=== PATIENT | male | born 2000 | race Caucasian/White ===

== ENCOUNTER 2018-12-24 01:05 | Emergency (ER) | payer MEDICAID ==
[2018-12-24 01:44] VITALS: BMI 22.1
[2018-12-24 01:52] VITALS: BP 134/70; PULSE 68; RESP 18; TEMP 98.2; O2SAT 100
--- NOTE | 2018-12-24 02:19 | ED PDOC ---
Arrival/HPI - General Chief Complaint: Dental Pain Time Seen by Provider: 12/24/18 01:42 Historian: Patient - History of Present Illness Narrative History of Present Illness (Text): 12/24/18 02:16 18 year old male, with no significant past medical history, presents to the emergency department with left dental swelling, today. Patient informs he was having dental pain for one month. Patient informs today he found that the area had swollen and gotten worse. Patient denies any other symptoms. Patient denies any fevers, chills, headache, dizziness, chest pain, shortness of breath, dyspnea on exertion, cough, abdominal pain, nausea, vomiting, diarrhea, back pain, neck pain, or any other complaint. Time/Duration: 24 hours, > month Symptom Onset: Gradual Symptom Course: Unchanged Quality: Aching Activities at Onset: Light Context: Home Past Medical History - Provider Review Nursing Documentation Reviewed: Yes - Psychiatric Hx Substance Use: No Family/Social History - Physician Review Nursing Documentation Reviewed: Yes Family/Social History: No Known Family HX Smoking Status: Light Smoker < 10 Cigarettes Daily Hx Alcohol Use: No Hx Substance Use: No Allergies/Home Meds Allergies/Adverse Reactions: Allergies No Known Allergies Allergy (Verified 12/24/18 01:44) Review of Systems - Physician Review All systems were reviewed & negative as marked: Yes - Review of Systems Constitutional: absent: Fevers, Night Sweats ENT: Other (dental pain) Respiratory: absent: SOB, Cough Cardiovascular: absent: Chest Pain, GRIJALVA Gastrointestinal: absent: Abdominal Pain, Diarrhea, Nausea, Vomiting Musculoskeletal: absent: Back Pain, Neck Pain Neurological: absent: Headache, Dizziness Physical Exam Vital Signs Reviewed: Yes Vital Signs Temp Pulse Resp BP Pulse Ox 12/24/18 01:52 98.2 F 68 18 134/70 100 Temperature: Afebrile Blood Pressure: Normal Pulse: Regular Respiratory Rate: Normal Appearance: Positive for: Well-Appearing, Non-Toxic, Comfortable Pain Distress: None Mental Status: Positive for: Alert and Oriented X 3 - Systems Exam Head: Present: Atraumatic, Normocephalic Pupils: Present: PERRL Extroacular Muscles: Present: EOMI Conjunctiva: Present: Normal Mouth: Present: Other (swelling to left buccal area) Neck: Present: Normal Range of Motion Respiratory/Chest: Present: Clear to Auscultation, Good Air Exchange. No: Respiratory Distress, Accessory Muscle Use Cardiovascular: Present: Regular Rate and Rhythm, Normal S1, S2. No: Murmurs Abdomen: No: Tenderness, Distention, Peritoneal Signs Back: Present: Normal Inspection Upper Extremity: Present: Normal Inspection. No: Cyanosis, Edema Lower Extremity: Present: Normal Inspection. No: Edema Neurological: Present: GCS=15, CN II-XII Intact, Speech Normal Skin: Present: Warm, Dry, Normal Color. No: Rashes Psychiatric: Present: Alert, Oriented x 3, Normal Insight, Normal Concentration Medical Decision Making ED Course and Treatment: 12/24/18 02:20 Impression: 18 year old male presents with left sided dental pain. Plan: -- Clindamycin -- Reassess and disposition Prior Visits: Notes and results from previous visits were reviewed. Progress Notes: 12/24/18 04:29 concern for large abscess on exam. adivsed will liketo transfer to [facility] . at this time, pt refuses me to arrange transfer. will sign out ama. 12/24/18 04:31 explained risks verbailzies understanding refuses all er w/u signs ama. - Medication Orders Current Medication Orders: Discontinued Medications Clindamycin HCl (Cleocin) 300 mg PO STAT STA; Protocol Stop: 12/24/18 02:13 - Scribe Statement The provider has reviewed the documentation as recorded by the Chan Whitney Provider Scribe Attestation: All medical record entries made by the Scribe were at my direction and personally dictated by me. I have reviewed the chart and agree that the record accurately reflects my personal performance of the history, physical exam, medical decision making, and the department course for this patient. I have also personally directed, reviewed, and agree with the discharge instructions and disposition. Disposition/Present on Arrival - Present on Arrival Any Indicators Present on Arrival: No History of DVT/PE: No History of Uncontrolled Diabetes: No Urinary Catheter: No History of Decub. Ulcer: No History Surgical Site Infection Following: None - Disposition Have Diagnosis and Disposition been Completed?: Yes Diagnosis: Dental abscess, Left against medical advice Disposition: HOME/ ROUTINE Disposition Time: 01:50 Condition: STABLE Discharge Instructions (ExitCare): Dental Pain (DC), Leaving Against Medical Advice Additional Instructions: you are leaving against medical advice. you are able to return to any er with worsening symptoms or concerns Prescriptions: Clindamycin [Cleocin] 300 mg PO Q8 #21 cap Forms: [employer] ([place]) Against Medical Advice - AMA Patient Left Against Medical Advice: The patient declines admission to the hospital and wishes to leave the Emergency Department. This action is against my medical advice. This decision was made with informed refusal. The patient was told that admission to the hospital is necessary. Explanation of the reasons why were discussed. The risks of leaving were explained to the patient and include, but are not limited to, worsening of known or currently unknown conditions, permanent disability and from undiagnosed or untreated conditions. The patient has the capacity to make this informed decision and understands my explanation of the current medical problem and risks of leaving. The patient voluntarily accepts these risks and signed an AMA form documenting our conversation. The patient was given the opportunity to ask questions and reconsider. The patient was encouraged to return to the Emergency Department at any time for further care.
== END 2018-12-24 02:18 | disposition home or self-care (01) ==
LOC: ED 01:05
DX: K04.7 Periapical abscess without sinus (principal); F17.210 Nicotine dependence, cigarettes, uncomplicated